=== PATIENT | female | born 1995 | race Caucasian/White ===

== ENCOUNTER 2024-08-22 00:50 | Emergency (ER) | payer MEDICAID ==
[~2024-08-22] VITALS: Ht 170.2 cm; Wt 72.6 kg
[2024-08-22] MEDS ORDERED: ACETAMINOPHEN 325 MG TABLET ONE (01:24)
[2024-08-22] MEDS ORDERED: METOCLOPRAMIDE HCL 10 MG TABLET ONE (01:24)
[2024-08-22] MEDS: METOCLOPRAMIDE HCL 10 MG TABLET PO ONE (01:29)
[2024-08-22] MEDS: ACETAMINOPHEN 500 MG TABLET PO ONE (01:29)
[2024-08-22 01:40] LABS: BASOPHILS % (AUTO) 0.3 % (0.0-2.0); EOSINOPHILS % (AUTO) 0.2 % (0.0-7.0); HEMATOCRIT 37.3 % (31.2-41.9); HEMOGLOBIN 12.2 g/dL (10.9-14.3); LYMPHOCYTES # (AUTO) 1.2 K/uL (0.8-4.8); MEAN CORPUSCULAR HEMOGLOBIN 26.7 uug (24.7-32.8); MEAN CORPUSCULAR HGB CONC 33 g/dL (32.3-35.6); MEAN CORPUSCULAR VOLUME 81.5 fL (75.5-95.3); MONOCYTES # (AUTO) 0.5 K/uL (0.1-1.30); MONOCYTES % (AUTO) 5.6 % (0.0-11.0); NEUTROPHILS # (AUTO) 6.7 K/uL (1.8-8.9); NEUTROPHILS % (AUTO) 79.9 % (38.5-71.5); PLATELET COUNT (AUTO) 331 K/uL (179-408); RED BLOOD CELL COUNT(AUTO) 4.57 MIL/uL (3.63-4.92); RED CELL DISTRIBUTION WIDTH 15.1 % (12.3-17.7); WHITE BLOOD COUNT (AUTO) 8.4 K/uL (3.8-11.8)
[2024-08-22 01:49] LABS: DIFFERENTIAL COMMENT 1
[2024-08-22 01:55] LABS: CREATININE 0.6 mg/dL (0.6-1.3); POTASSIUM 3.5 mmol/L (3.5-5.1)
[2024-08-22 02:01] LABS: ALBUMIN 3.3 g/dL (3.4-5.0); TOTAL PROTEIN, SERUM 7.9 g/dL (6.4-8.2)
[2024-08-22] MEDS ORDERED: KETOROLAC TROMETHAMINE 30 MG INJ ONE (03:33)
[2024-08-22] MEDS: KETOROLAC TROMETHAMINE 30 MG INJ IM ONE (03:37)
[2024-08-22 03:43] LABS: *BILIRUBIN,URIN NEGATIVE (NEGATIVE); *BLOOD, URINE NEGATIVE (NEGATIVE); *CLARITY,URINE CLEAR (CLEAR); *COLOR,URINE YELLOW (YELLOW); *KETONES,URINE 2+ (NEGATIVE); *PROTEIN,URINE NEGATIVE (NEGATIVE); *UROBILINOGEN,URINE 0.2 E.U./dl (NORMAL); LEUKOCYTE ESTERASE ,URINE 1+ (NEGATIVE); NITRITE, URINE POSITIVE (NEGATIVE); UGLUCOSE NEGATIVE (NEGATIVE)
[2024-08-22 03:50] LABS: *AMPHETAMINE, URINE POSITIVE (NEGATIVE); *BARBITURATE, URINE NEGATIVE (NEGATIVE); *BENZODIAZEPINE, URINE NEGATIVE (NEGATIVE); *CANNABINOID, URINE POSITIVE (NEGATIVE); *COCCAINE, URINE NEGATIVE (NEGATIVE); *OPIATE, URINE NEGATIVE (NEGATIVE); *PHENCYCLIDINE SCREEN,URINE NEGATIVE (NEGATIVE); FENTANYL, URINE POSITIVE (NEGATIVE)
[2024-08-22 03:53] LABS: BACTERIA,URINE MODERATE /HPF (NONE SEEN); RBC,URINE 0-3 /HPF (0-3); SQUAMOUS EPITHELIAL CELL,UR MODERATE /HPF (NONE SEEN)
[2024-08-22] MEDS ORDERED: CEphaleXIN 500 MG CAPSULE ONE (04:11)
[2024-08-22] MEDS ORDERED: IBUP-1955 PO (04:13)
[2024-08-22] MEDS: CEphaleXIN 500 MG CAPSULE PO ONE (04:13)
[2024-08-22] MEDS ORDERED: METO-295 PO (04:13)
[2024-08-22] MEDS ORDERED: CEPH500C2 PO (04:13)
[2024-08-22 04:23] VITALS: BP 115/75; O2SAT 99
== END 2024-08-22 04:24 | disposition home or self-care (01) ==
LOC: ER 01:12
DX: R51.9 Headache, unspecified (principal); R10.2 Pelvic and perineal pain; L08.9 Local infection of the skin and subcutaneous tissue, unspecified; F11.90 Opioid use, unspecified, uncomplicated; N39.0 Urinary tract infection, site not specified; Z79.1 Long term (current) use of non-steroidal anti-inflammatories (NSAID); Z79.899 Other long term (current) drug therapy
CPT/HCPCS: 99285; 70450; 80053; 85025; 84702; 36415; 96372; 87086; 80307; 81001; J1885; A4606; A4663; J8597

== ENCOUNTER 2024-09-10 13:31 | Emergency (ER) | payer MEDICAID ==
[~2024-09-10 13:31] MED LIST: CEPH500C2 PO; IBUP-1955 PO; METO-295 PO
== END 2024-09-10 13:48 | disposition left against medical advice (07) ==
LOC: ER 13:39
DX: A64 Unspecified sexually transmitted disease (principal); Z53.21 Procedure and treatment not carried out due to patient leaving prior to being seen by health care provider